=== PATIENT | female | born 1970 | race Caucasian/White ===

== ENCOUNTER → 2017-03-18 | Outpatient (CLI) | payer BC ==
[~2017-03-18] MED LIST: PARO1TAB27 PO; SYN25 PO
[2017-03-18 13:03] LABS: THYROID STIMULATING HORMONE 5.53 uIu/ml (0.300-4.500)
[2017-03-18 13:15] LABS: ESTIMATED AVERAGE GLUCOSE 111 mg/dl; HA1C FLAG Normal (Normal)
== END | disposition home or self-care (01) ==
LOC: C.LABPVFM 09:44
PROVIDERS: ATTEND Family Medicine
DX: E03.9 Hypothyroidism, unspecified (principal); R73.09 Other abnormal glucose

== ENCOUNTER → 2017-05-13 | Outpatient (CLI) | payer BC ==
--- NOTE | 2017-05-13 14:08 | DIAGNOSTIC IMAGING REPORT ---
LEFT LOWER EXTREMITY VENOUS DOPPLER HISTORY: LEFT LEG PAIN, LUMP R/O DVT COMPARISON STUDY: None. FINDINGS: There is normal compressibility, flow, and augmentation within the left lower extremity deep venous system. IMPRESSION: No DVT within the left lower extremity. Electronically signed by: Mitchel Samayoa M.D. 05/13/2017 2:06 PM Dictated Date/Time: 05/13/2017 2:06 PM
== END | disposition home or self-care (01) ==
LOC: C.ULTRBC 13:19
PROVIDERS: ATTEND Orthopaedic Surgery Sports Medicine
DX: M79.662 Pain in left lower leg (principal)

== ENCOUNTER → 2017-08-13 | Outpatient (CLI) | payer BC ==
[~2017-08-13] MED LIST changes: +CHOL20007 PO; +LEVO137T3 PO
== END | disposition home or self-care (01) ==
LOC: C.LABPVFM 13:11
PROVIDERS: ATTEND Family Medicine
DX: E66.9 Obesity, unspecified (principal)

== ENCOUNTER 2017-08-17 01:50 | Emergency (ER) | payer OTHER, BC ==
[~2017-08-17] VITALS: Ht 165.1 cm; Wt 115.9 kg
[~2017-08-17 01:50] MED LIST changes: -CHOL20007 PO; -LEVO137T3 PO
[2017-08-17 01:55] VITALS: TEMP 36.5; Ht 165.1 cm; Wt 115.9 kg
[2017-08-17] MEDS ORDERED: IBUPROFEN 600 MG TAB PO STA (02:11)
[2017-08-17] MEDS ORDERED: ACETAMINOPHEN 500 MG TAB PO STA (02:11)
[2017-08-17] MEDS ORDERED: LEVO137T3 PO (02:22)
[2017-08-17] MEDS ORDERED: CHOL20007 PO (02:23)
[2017-08-17 04:37] VITALS: BP 159/81; PULSE 89; O2SAT 97
--- NOTE | 2017-08-17 09:53 | DIAGNOSTIC IMAGING REPORT ---
CHEST 2 VIEWS ROUTINE CLINICAL HISTORY: Fall. Right side chest injury. COMPARISON STUDY: Chest radiograph August 07, 2015. FINDINGS: Cholecystectomy clips are noted. No pneumothorax or pleural effusion is noted. No airspace opacities are identified. No right rib fractures are identified although sensitivity is diminished given this technique. Cardiac size is at the upper limits of normal. There is no evidence for pulmonary edema. IMPRESSION: 1. No acute cardiopulmonary findings. No pneumothorax. 2. No right rib fractures identified although sensitivity significantly diminished given this technique. Electronically signed by: Sim Duffy M.D. 08/17/2017 9:52 AM Dictated Date/Time: 08/17/2017 9:50 AM
--- NOTE | 2017-08-17 09:59 | DIAGNOSTIC IMAGING REPORT ---
R ANKLE MIN 3 VIEWS ROUTINE CLINICAL HISTORY: Fall. Right ankle injury. COMPARISON: None FINDINGS: Alignment of the right ankle is anatomic. There is no acute fracture. There is moderate posterior and plantar calcaneal spurring. There is moderate ankle soft tissue swelling. IMPRESSION: No acute fracture or dislocation of the right ankle. Electronically signed by: Sim Duffy M.D. 08/17/2017 9:58 AM Dictated Date/Time: 08/17/2017 9:52 AM
--- NOTE | 2017-08-18 01:59 | EMERGENCY ROOM VISIT NOTE ---
History First contact with patient: 01:59 Chief Complaint: FALL Stated Complaint: FELL AT WORK-HURT RIGHT ANKLE AND BACK History of Present Illness The patient is a 47 year old female who presents to the Emergency Room with complaints of right ankle pain after slipping on ice at work tonight. 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 She states that she turned the ankle inward and also landed onto her right side chest. She did not strike her head or lose consciousness. She was able to stand and walk after the injury. The patient already follows with [facility] for a left Achilles tendon rupture and repair. She is not having any discomfort in this area. No shortness of breath. The fall was mechanical in nature. She is not taken nothing [id number] for her discomfort which she currently rates a 5/10. Review of Systems More than 10 systems were reviewed and otherwise negative with the exception of history of present illness. Past Medical/Surgical History No pertinent chronic medical disease Family History No pertinent family history Social History Smoking Status: Never Smoker Occupation Status: employed Current/Historical Medications Scheduled Cholecalciferol (Vitamin D3), 2,000 MG PO DAILY Levothyroxine Sodium (Levothyroxine Sodium), 1 TAB PO DAILY Paroxetine (Paxil), 20 MG PO DAILY Physical Exam Vital Signs Date Time Temp Pulse Resp B/P (MAP) Pulse Ox O2 Delivery O2 Flow Rate FiO2 08/17/17 04:37 89 16 159/81 97 Room Air 08/17/17 03:39 68 18 169/95 98 Room Air 08/17/17 01:55 36.5 73 20 157/89 98 Room Air Physical Exam VITALS: Vitals are noted on the nurse's note and reviewed by myself. Vital signs stable. GENERAL: Well-developed, well-nourished, white female, who is in no acute distress and resting comfortably. Patient is cooperative with the examination. NECK: Supple without nuchal rigidity. No lymphadenopathy. No thyromegaly. Cervical spine is nontender. HEART: Regular rate and rhythm without murmurs gallops or rubs. LUNGS: Clear to auscultation bilaterally without wheezes, rales or rhonchi. No retractions or accessory muscle use. CHEST WALL: No obvious reducible tenderness throughout the right side chest wall. No significant abrasion MUSCULOSKELETAL: There is mild edema appreciated over the lateral aspect of the right ankle that is tender. No lacerations or abrasions. No gross deformity. Neurovascular status is intact distally. No tenderness of the MTP joints or heel. No right knee or hip tenderness. NEURO: Patient was alert and oriented to person place and time. CN II through XII grossly intact. Medical Decision & Procedures ER Provider Diagnostic Interpretation: R ANKLE MIN 3 VIEWS ROUTINE CLINICAL HISTORY: Fall. Right ankle injury. COMPARISON: None FINDINGS: Alignment of the right ankle is anatomic. There is no acute fracture. There is moderate posterior and plantar calcaneal spurring. There is moderate ankle soft tissue swelling. IMPRESSION: No acute fracture or dislocation of the right ankle. CHEST 2 VIEWS ROUTINE CLINICAL HISTORY: Fall. Right side chest injury. COMPARISON STUDY: Chest radiograph August 07, 2015. FINDINGS: Cholecystectomy clips are noted. No pneumothorax or pleural effusion is noted. No airspace opacities are identified. No right rib fractures are identified although sensitivity is diminished given this technique. Cardiac size is at the upper limits of normal. There is no evidence for pulmonary edema. IMPRESSION: 1. No acute cardiopulmonary findings. No pneumothorax. 2. No right rib fractures identified although sensitivity significantly diminished given this technique. Medications Administered Medications (Trade) Dose Ordered Sig/Guilherme Route Start Time Stop Time Status Last Admin Dose Admin Acetaminophen (Tylenol Tab) 1,000 mg NOW STAT PO 08/17/17 02:11 08/17/17 02:12 DC 08/17/17 02:30 1,000 MG Ibuprofen (Motrin Tab) 600 mg NOW STAT PO 08/17/17 02:11 08/17/17 02:12 DC 08/17/17 02:29 600 MG ED Course Physical exam and history were performed. Nursing notes, EMR, and Medication List were personally reviewed. Patient appears to have slipped at work causing injury to her right ankle. She is also complaining of vague right-sided chest discomfort, however no distinct point tenderness appreciated on examination. The patient was given Advil and Tylenol here in the department. X-rays were performed and reviewed by myself and radiology showing no acute fractures or dislocations. Overall the patient appears well for discharge home. She will be given a walker and gel ankle splint. She is to follow with Workmen's Compensation for further management. She was otherwise invited back to the ER with any new, worsening, or concerning symptoms. The chart was completed utilizing [employer] Speech Voice Recognition Software. Grammatical errors, random word insertions, pronoun errors, and incomplete sentences are an occasional consequence of this system due to software limitations, ambient noise, and hardware issues. Any formal questions or concerns about the content, text, or information contained within the body of this dictation should be directly addressed to the provider for clarification. . Medical Decision Differential diagnosis includes, but is not limited to: Sprain, strain, fracture , dislocation, subluxation, contusion, and others Impression Primary Impression: Fall Additional Impressions: Right ankle injury Chest wall injury Departure Information Dispostion Home / Self-Care Condition GOOD Referrals Manish Denney D.O. Forms HOME CARE DOCUMENTATION FORM, Work Instructions, Additional Instructions: Patient was seen and evaluated today in the emergency department fo medical care. Return to work on 08/20/2017 or at the instruction o Workmen's Compensation. Please excuse. IMPORTANT VISIT INFORMATION Patient Instructions My [facility] Additional Instructions You were seen and evaluated today on an emergency basis only. This is not a substitute for, or an effort to provide, complete comprehensive medical care. It is not possible to recognize and treat all injuries or illnesses in a single emergency department visit. For this reason it is recommended that you followup with Workmen's Compensation for ongoing care and evaluation. For baseline pain relief you may alternate ibuprofen and acetaminophen every 4 hours for pain control. Take 600 mg ibuprofen (Advil) and then 4 hours later take 1000 mg acetaminophen (Tylenol). Do not take more than 3000 mg acetaminophen in a single day. Wrap your ankle for comfort. Use your crutches to help with walking. You are welcome to return to the emergency department anytime with new, worsening, or concerning symptoms. Work Instructions Additional Work Instructions: Patient was seen and evaluated today in the emergency department for medical care. Return to work on 08/20/2017 or at the instruction of Workmen's Compensation. Please excuse. Problem Qualifiers
== END 2017-08-17 04:45 | disposition home or self-care (01) ==
LOC: C.EDB 01:51
DX: S99.911A Unspecified injury of right ankle, initial encounter (principal); S20.90XA Unspecified superficial injury of unspecified parts of thorax, initial encounter; W00.9XXA Unspecified fall due to ice and snow, initial encounter; Z98.890 Other specified postprocedural states

== ENCOUNTER → 2017-11-20 | Outpatient (CLI) | payer BC ==
[~2017-11-20] MED LIST changes: +CHOL20007 PO; +LEVO137T3 PO; -SYN25 PO
--- NOTE | 2017-11-21 15:17 | MAMMOGRAPHY REPORT ---
BILATERAL DIGITAL SCREENING MAMMOGRAM TOMOSYNTHESIS WITH CAD: 11/20/2017 CLINICAL HISTORY: Routine screening. The patient reported to the technologist that she has itching o f the right breast. TECHNIQUE: Breast tomosynthesis in addition to standard 2D mammography was performed. Current study was also evaluated with a Computer Aided Detection (CAD) system. COMPARISON: Comparison is made to exams dated: 09/08/2015 mammogram, 04/06/2014 ultrasound, 04/06/2014 mammogram, 02/19/2013 ultrasound, 02/11/2013 mammogram, and 10/14/2011 mammogram - [facility]. BREAST COMPOSITION: There are scattered areas of fibroglandular density in both breasts. FINDINGS: No suspicious masses, calcifications, or areas of architectural distortion are noted in ei ther breast. There has been no significant interval change compared to prior exams. Lobulated benign -appearing mass measuring approximately 2.9 cm in the left upper outer anterior breast is again noted and was shown to represent a benign cyst on prior ultrasound exams. IMPRESSION: ACR BI-RADS CATEGORY 2: BENIGN There is no mammographic evidence of malignancy. A 1 year screening mammogram is recommended. Also r ecommend clinical follow-up for itching of the right breast. The patient will receive written notifi cation of the results. Approximately 10% of breast cancers are not detected with mammography. A negative mammographic report should not delay biopsy if a clinically suggestive mass is present. Leonor Curtis M.D. /:11/20/2017 16:30:47 Awnings Mechanic: Patrica DELGADO(Ailin)(Ren), [facility] letter sent: Normal 1/2 BI-RADS Code: ACR BI-RADS Category 2: Benign
== END | disposition home or self-care (01) ==
LOC: C.MAMM 14:20
PROVIDERS: ATTEND Family Medicine
DX: Z12.31 Encounter for screening mammogram for malignant neoplasm of breast (principal); L29.9 Pruritus, unspecified

== ENCOUNTER 2018-02-09 19:51 | Emergency (ER) | payer BC ==
[~2018-02-09] VITALS: Ht 165.1 cm; Wt 117.4 kg
[2018-02-09 19:57] VITALS: TEMP 36.6; Ht 165.1 cm; Wt 117.4 kg
[2018-02-09] MEDS ORDERED: ONDANSETRON 4MG OD TAB PO STA (20:25)
[2018-02-09] MEDS ORDERED: FAMOTIDINE 20 MG TAB PO ONE (20:30)
--- NOTE | 2018-02-09 20:40 | EMERGENCY ROOM VISIT NOTE ---
History Report prepared by [employer]: Lilli Ware Under the Supervision of: Dr. Suresh Delatorre M.D. First contact with patient: 20:18 Chief Complaint: ALLERGIC REACTION Stated Complaint: RASH,WELTS,HIVES History of Present Illness The patient is a 47 year old white female with a past medical history of anxiety and cholecystectomy who presents to the ED with a cc of constant, itchy rash beginning around 7 hours ago. She states she noticed a bug bite on her wrist this morning, and put topical anti-itch cream on the area. The patient reports she began noticing a rash on her legs while at work, which has since spread to the rest of her body. She notes she is nauseated. The patient states she returned last night from a trip to [place], [place]. She reports she was around horses and received multiple bug bites while on the trip. The patient denies any headaches, vomiting, or SOB. She denies any other recent travel, changes in shampoo etc, diet changes, or contact with plants. The patient notes no one else from her trip is sick. She reports no known allergies besides penicillin. Source of History: patient Onset: 7 hours ago Position: other (skin) Quality: other (itchy rash) Timing: constant Associated Symptoms: + nausea, No headache, No SOB, No vomiting Review of Systems See HPI for pertinent positives and negatives. A total of ten systems were reviewed and were otherwise negative. Family History No pertinent family history stated. Social History Smoking Status: Never Smoker Smokeless Tobacco Use: No Alcohol Use: none Drug Use: none Occupation Status: employed Current/Historical Medications Scheduled Levothyroxine Sodium (Levothyroxine Sodium), 137 MCG PO DAILY Paroxetine (Paroxetine HCl), 15 MG PO DAILY Prednisone (Prednisone), 50 MG PO DAILY Allergies Coded Allergies: Penicillins (Verified Allergy, Intermediate, hives, 08/17/17) Uncoded Allergies: NKA (Allergy, Unknown, 04/10/03) Physical Exam Vital Signs Date Time Temp Pulse Resp B/P (MAP) Pulse Ox O2 Delivery O2 Flow Rate FiO2 02/09/18 21:36 83 18 181/112 97 02/09/18 20:49 Room Air 02/09/18 20:21 82 02/09/18 19:57 36.6 104 18 158/96 95 Room Air Physical Exam GENERAL: Awake, alert, well-appearing, NAD, obese. HENT: Normocephalic, atraumatic. Non-stridulous. EYES: Normal conjunctiva. Sclera non-icteric. PERRL. No anisocoria. NECK: Supple. No nuchal rigidity. FROM. RESPIRATORY: CTAB, no rhonchi, wheezing, crackles CARDIAC: RRR, no MRG ABDOMEN: Soft, NTND, BS+ MSK: No chest wall TTP, no LE edema NEURO: GCS 15, CN 2-12 intact, moves all 4s on command SKIN: Confluent blanching, macular erythema over lower back and band-like across the abdomen and small area behind R ear. Medical Decision & Procedures Medications Administered Medications (Trade) Dose Ordered Sig/Guilherme Route Start Time Stop Time Status Last Admin Dose Admin Ondansetron HCl (Zofran Odt) 4 mg NOW STAT PO 02/09/18 20:25 02/09/18 20:28 DC 02/09/18 20:35 4 MG Prednisone (PredniSONE TAB) 50 mg NOW STAT PO 02/09/18 20:25 02/09/18 20:28 DC 02/09/18 20:35 50 MG Diphenhydramine HCl (Benadryl Cap) 50 mg NOW ONCE PO 02/09/18 20:30 02/09/18 20:31 DC 02/09/18 20:35 50 MG Famotidine (Pepcid Tab) 20 mg NOW ONCE PO 02/09/18 20:30 02/09/18 20:31 DC 02/09/18 20:35 20 MG ED Course 2020: The patient was evaluated in room C3. A complete history and physical exam was performed. 2117: I reevaluated the patient. Discussed results and discharge instructions: she verbalized understanding and agreement. The patient is ready for discharge. Medical Decision The patient is a 47 year old white female with a past medical history of anxiety and cholecystectomy who presents to the ED with a cc of constant, itchy rash beginning around 7 hours ago. Etiologies such as contact dermatitis, viral exanthem, urticaria, allergic reaction, Cardenas-Ugo syndrome, toxic epidermal necrolysis, erythema multiforme, cellulitis, scabies, HSV, varicella, zoster, eczema, staph scalded skin syndrome, fungal infection, as well as others were entertained. Patient was seen and evaluated the bedside. The patient was complaining of a rash and itchiness. On exam the patient is non-stridulous and does not have any evidence of wheezing. Posterior pharynx is clear. Patient does have mild rash to the abdomen back and right side of the neck. It does not involve the oral or eye mucosa. Patient was given steroids, Benadryl, and Pepcid. Upon reassessment the patient was feeling improved and the rash was receding. I believe the patient is suitable for outpatient follow-up and treatment at this time. Patient was given strict follow-up, discharge, and return precautions. All questions were answered. Patient was deemed suitable for outpatient follow-up at this time. Patient agreed with the plan of care and was safely discharged home. Medication Reconcilliation Current Medication List: was personally reviewed by me Blood Pressure Screening Patient's blood pressure: Elevated blood pressure Blood pressure disposition: Referred to PCP Impression Primary Impression: Allergic reaction Additional Impression: Urticaria Scribe Attestation The scribe's documentation has been prepared under my direction and personally reviewed by me in its entirety. I confirm that the note above accurately reflects all work, treatment, procedures, and medical decision making performed by me. Departure Information Dispostion Home / Self-Care Prescriptions Prednisone (PREDNISONE) 50 Mg Tab 50 MG PO DAILY for 4 Days, #4 TAB Prov: Suresh Delatorre M.D. 02/09/18 Referrals No Doctor, Assigned (PCP) Forms HOME CARE DOCUMENTATION FORM, IMPORTANT VISIT INFORMATION Patient Instructions ED Allergic Reaction General Other, ED Urticaria, My [facility] Additional Instructions Please return to the emergency department if you have worsening or recurrent symptoms not amenable to at-home treatment. Please call for a follow-up appointment with her primary care physician. Please take your medications as prescribed. If you have other concerns and/or complaints please feel free to also call your primary care physician's office or return the ED for further evaluation, management, and treatment. You were found to have an elevated blood pressure today (>120 sytolic or >90 diastolic). Per medicare guidelines, you need to follow up with this blood pressure screening with your Primary Care Physician (PCP). For a new PCP call [phone]. You received narcotic or benzodiazepene medication while in the emergency room today. This is an addictive medication that may cause drowziness as well as constipation. Do not drive, operate heavy machinery, or drink alcohol under the influence of this medication. You may take 400 mg Ibuprofen every 6 hours as needed for pain/fever with food unless told by your physician not to take NSAIDs. You may take tylenol 650 mg every 6 hours as needed for pain/fever unless told by your physician to not take it or have liver problems. You may take motrin and tylenol separately or at the same time. Take your medications as prescribed. You may consider Benadryl or Cortaid cream. Please do not use the cortisone based cream for more than 2 days at a time as this may cause some skin thinning. You may also consider calamine lotion. You may consider Benadryl. You may also consider oatmeal baths. Please also consider only bathing once daily and making sure that your water is not very hot as washing too frequently and/or using very hot water may also cause some skin dryness and worsening itchiness. Please consider using creams as opposed to lotions as the lotions typically have alcohols which may also further worsen skin dryness and itchiness. Please take your steroids preferably in the morning and with food as they may cause some upset stomach and cause you to be very awake and alert. You have been examined and treated today on an emergency basis only. This is not a substitute for, or an effort to provide, complete comprehensive medical care. It is impossible to recognize and treat all injuries or illnesses in a single emergency department visit. It is therefore important that you follow up closely with [facility], your PCP, and/or your specialist(s). Call as soon as possible for an appointment. Thank you for your time and consideration. I look forward to speaking with you again soon. Please don't hesitate to call us if you have any questions. Problem Qualifiers Primary Impression: Allergic reaction Encounter type: initial encounter Qualified Codes: T78.40XA - Allergy, unspecified, initial encounter
[2018-02-09] MEDS ORDERED: PRED50TA PO (21:01)
[2018-02-09 21:36] VITALS: BP 181/112; PULSE 83; O2SAT 97
[2018-02-09] MEDS ORDERED: PXL/10 PO (21:45)
== END 2018-02-09 21:37 | disposition home or self-care (01) ==
LOC: C.EDB 19:51 → C.EDC 21:37
DX: T78.40XA Allergy, unspecified, initial encounter (principal); X58.XXXA Exposure to other specified factors, initial encounter; Z79.899 Other long term (current) drug therapy; Z88.0 Allergy status to penicillin

== ENCOUNTER 2018-02-13 09:24 | Emergency (ER) | payer BC ==
[~2018-02-13] VITALS: Ht 165.1 cm; Wt 115.7 kg
[~2018-02-13 09:24] MED LIST changes: -CHOL20007 PO; -PARO1TAB27 PO; +PRED50TA PO; +PXL/10 PO
[2018-02-13 09:28] VITALS: TEMP 36.7; Ht 165.1 cm; Wt 115.7 kg
[2018-02-13] MEDS ORDERED: ONDANSETRON INJ 2 MG/ML 2 ML VIAL IV STA (09:48)
[2018-02-13] MEDS ORDERED: METHYLPREDNISOLONE 125 MG VIAL IV STA (09:48)
[2018-02-13] MEDS ORDERED: SODIUM CHLORIDE 0.9% 1000ML 1,000 ML IV STA (09:48)
[2018-02-13] MEDS ORDERED: DiphenhydrAMINE HCL 50 MG/ML VIAL IV STA (09:48)
[2018-02-13] MEDS ORDERED: RANITIDINE HCL 150 MG TAB PO STA (09:48)
[2018-02-13 10:17] LABS: BASO % 0.2 %; BASO ABS # 0.01 K/uL (0-0.2); EOS % 0.7 %; EOS ABS # 0.04 K/uL (0-0.5); HEMATOCRIT 43.3 % (37-47); HEMOGLOBIN 14.9 g/dL (12.0-16.0); IG# 0.02 K/uL (0.00-0.02); LYMPH % 18.6 %; LYMPH ABS # 1.13 K/uL (1.2-3.4); MEAN CELL VOLUME 87.5 fL (80-100); MEAN CORPUSCULAR HEMOGLOBIN 30.1 pg (25-34); MEAN CORPUSCULAR HGB CONC 34.4 g/dl (32-36); MEAN PLATELET VOLUME 9.2 fL (7.4-10.4); MONO % 6.1 %; MONO ABS # 0.37 K/uL (0.11-0.59); NEUT % 74.1 %; NEUT ABS # 4.51 K/uL (1.4-6.5); PLATELET COUNT 236 K/uL (130-400); RED CELL DISTRIBUTION WIDTH SD 41.4 fL (36.4-46.3); WHITE BLOOD COUNT 6.08 K/uL (4.8-10.8)
--- NOTE | 2018-02-13 10:28 | EMERGENCY ROOM VISIT NOTE ---
History Report prepared by Maggie: Navneet Griffin Under the Supervision of: Dr. Rajinder Loredo M.D. First contact with patient: 09:40 Chief Complaint: RASH Stated Complaint: RASH,VOMITING,DIARRHEA History of Present Illness The patient is a 47 year old female who presents to the Emergency Room with complaints of a persistent rash across her abdomen that she first noticed on Friday, 4 days ago. The patient states that she presented to the emergency department 4 days ago for the rash and was prescribed a steroid. She did not fill or take the steroid and she has not had any improvement of her symptoms. She now complains of nausea, vomiting, or diarrhea. She denies any abdominal pain. Source of History: patient Onset: 4 days ago Position: abdomen Quality: other (Rash) Timing: other (Persistent) Associated Symptoms: + nausea, + vomiting, + diarrhea, No abdominal pain Review of Systems See HPI for pertinent positives & negatives. A total of 10 systems reviewed and were otherwise negative. Past Medical & Surgical Hx of Hypothyroid. Social History Smoking Status: Never Smoker Alcohol Use: none Drug Use: none Occupation Status: employed Current/Historical Medications Scheduled Levothyroxine Sodium (Levothyroxine Sodium), 137 MCG PO DAILY Paroxetine (Paroxetine HCl), 15 MG PO DAILY Prednisone (Prednisone Tab), 0 PO DAILY Allergies Coded Allergies: Penicillins (Verified Allergy, Intermediate, hives, 02/13/18) Physical Exam Vital Signs Date Time Temp Pulse Resp B/P (MAP) Pulse Ox O2 Delivery O2 Flow Rate FiO2 02/13/18 11:39 71 18 148/89 98 Room Air 02/13/18 10:38 82 18 138/97 100 Room Air 02/13/18 10:38 75 02/13/18 09:28 36.7 97 18 154/92 100 Room Air Physical Exam GENERAL: Awake, alert, well-appearing, in no acute distress HENT: Normocephalic, atraumatic. Oropharynx unremarkable. EYES: Normal conjunctiva. Sclera non-icteric. NECK: Supple. No nuchal rigidity. FROM. No JVD. RESPIRATORY: Clear to auscultation. There is no wheezing or stridor present. CARDIAC: Regular rate, normal rhythm. Extremities warm and well perfused. Pulses equal. ABDOMEN: Soft, non-distended. No tenderness to palpation. No rebound or guarding. No masses. RECTAL: Deferred. MUSCULOSKELETAL: Chest examination reveals no tenderness. The back is symmetrical on inspection without obvious abnormality. There is no CVA tenderness to palpation. No joint edema. LOWER EXTREMITIES: Calves are equal size bilaterally and non-tender. No edema. No discoloration. NEURO: Normal sensorium. No sensory or motor deficits noted. SKIN: Urticarial rash present on flank, chest. Medical Decision & Procedures Laboratory Results 02/13/18 10:06 Red Blood Count 4.95, Mean Corpuscular Volume 87.5, Mean Corpuscular Hemoglobin 30.1, Mean Corpuscular Hemoglobin Concent 34.4, Mean Platelet Volume 9.2, Neutrophils (%) (Auto) 74.1, Lymphocytes (%) (Auto) 18.6, Monocytes (%) (Auto) 6.1, Eosinophils (%) (Auto) 0.7, Basophils (%) (Auto) 0.2, Neutrophils # (Auto) 4.51, Lymphocytes # (Auto) 1.13, Monocytes # (Auto) 0.37, Eosinophils # (Auto) 0.04, Basophils # (Auto) 0.01 02/13/18 10:06 Test 02/13/18 10:06 02/13/18 10:28 White Blood Count 6.08 K/uL (4.8-10.8) Red Blood Count 4.95 M/uL (4.2-5.4) Hemoglobin 14.9 g/dL (12.0-16.0) Hematocrit 43.3 % (37-47) Mean Corpuscular Volume 87.5 fL (80-100) Mean Corpuscular Hemoglobin 30.1 pg (25-34) Mean Corpuscular Hemoglobin Concent 34.4 g/dl (32-36) Platelet Count 236 K/uL (130-400) Mean Platelet Volume 9.2 fL (7.4-10.4) Neutrophils (%) (Auto) 74.1 % Lymphocytes (%) (Auto) 18.6 % Monocytes (%) (Auto) 6.1 % Eosinophils (%) (Auto) 0.7 % Basophils (%) (Auto) 0.2 % Neutrophils # (Auto) 4.51 K/uL (1.4-6.5) Lymphocytes # (Auto) 1.13 K/uL (1.2-3.4) Monocytes # (Auto) 0.37 K/uL (0.11-0.59) Eosinophils # (Auto) 0.04 K/uL (0-0.5) Basophils # (Auto) 0.01 K/uL (0-0.2) RDW Standard Deviation 41.4 fL (36.4-46.3) RDW Coefficient of Variation 13.0 % (11.5-14.5) Immature Granulocyte % (Auto) 0.3 % Immature Granulocyte # (Auto) 0.02 K/uL (0.00-0.02) Anion Gap 9.0 mmol/L (3-11) Est Creatinine Clear Calc Drug Dose 91.0 ml/min Estimated GFR () 81.5 Estimated GFR (Non- 70.3 BUN/Creatinine Ratio 19.6 (10-20) Calcium Level 8.6 mg/dl (8.5-10.1) Total Bilirubin 0.6 mg/dl (0.2-1) Direct Bilirubin mg/dl (0-0.2) Aspartate Amino Transf (AST/SGOT) 22 U/L (15-37) Alanine Aminotransferase (ALT/SGPT) 39 U/L (12-78) Alkaline Phosphatase 84 U/L (45-117) Total Protein 7.3 gm/dl (6.4-8.2) Albumin 3.5 gm/dl (3.4-5.0) Lipase 110 U/L (73-393) Chemistry Specimen Hemolysis Urine Color YELLOW Urine Appearance CLEAR (CLEAR) Urine pH 7.0 (4.5-7.5) Urine Specific [place] 1.020 (1.000-1.030) Urine Protein NEG (NEG) Urine Glucose (UA) NEG (NEG) Urine Ketones NEG (NEG) Urine Occult Blood NEG (NEG) Urine Nitrite NEG (NEG) Urine Bilirubin NEG (NEG) Urine Urobilinogen NEG (NEG) Urine Leukocyte Esterase TRACE (NEG) Labs reviewed by ED physician. Medications Administered Medications (Trade) Dose Ordered Sig/Guilherme Route Start Time Stop Time Status Last Admin Dose Admin Sodium Chloride 1,000 ml @ 999 mls/hr Q1H1M STAT IV 02/13/18 09:48 02/13/18 10:48 DC 02/13/18 10:26 999 MLS/HR Methylprednisolone Sodium Succinate (Solu-Medrol IV) 125 mg NOW STAT IV 02/13/18 09:48 02/13/18 09:51 DC 02/13/18 10:27 125 MG Ondansetron HCl (Zofran Inj) 4 mg NOW STAT IV 02/13/18 09:48 02/13/18 09:51 DC 02/13/18 10:27 4 MG Diphenhydramine HCl (Benadryl Inj) 50 mg NOW STAT IV 02/13/18 09:48 02/13/18 09:51 DC 02/13/18 10:27 50 MG Ranitidine HCl (zANTac TAB) 150 mg NOW STAT PO 02/13/18 09:48 02/13/18 09:51 DC 02/13/18 10:27 150 MG ED Course 0943: Past medical records reviewed. The patient was evaluated in room A11B. A complete history and physical examination was performed. 1143: Upon reexamination the patient is resting in bed. I discussed results and treatment plan with the patient. [] verbalizes agreement and understanding. The patient is ready for discharge. Medical Decision Prior records/ancillary studies reviewed. Triage Nursing notes reviewed. Differential diagnosis: Etiologies such as contact dermatitis, viral exanthem, urticaria, allergic reaction, Cardenas-Ugo syndrome, toxic epidermal necrolysis, erythema multiforme, cellulitis, scabies, HSV, varicella, zoster, eczema, staph scalded skin syndrome, fungal infection, gastroenteritis, food borne illness, infections , appendicitis, diverticulitis, inflammatory bowel disease, obstruction, GI bleed, biliary pathology, as well as others were entertained. 7-year-old female who presents emergency department complaining of allergic reaction. The patient was given Solu-Medrol Zantac and Benadryl. The patient had been prescribed prednisone however did not fill it. She has normal laboratory work including normal CBC normal renal profile normal liver profile. The patient will be placed on prednisone. I stressed the need to follow-up with primary care physician so the patient get in with an survey research center director. Patient was in agreement with the treatment plan. Medication Reconcilliation Current Medication List: was personally reviewed by me Blood Pressure Screening Patient's blood pressure: Elevated blood pressure Blood pressure disposition: Elevated BP felt to be situational Impression Primary Impression: Allergic reaction Scribe Attestation The scribe's documentation has been prepared under my direction and personally reviewed by me in its entirety. I confirm that the note above accurately reflects all work, treatment, procedures, and medical decision making performed by me. Departure Information Dispostion Home / Self-Care Prescriptions Prednisone (Prednisone Tab) 20 Mg Tab 0 PO DAILY, #7 TAB 2 TABS DAILY FOR 2 DAYS, THEN 1 TAB DAILY FOR 2 DAYS, THEN 1/2 TAB DAILY FOR 2 DAYS. Prov: Rajinder Loredo MD 02/13/18 Referrals No Doctor, Assigned (PCP) Forms HOME CARE DOCUMENTATION FORM, IMPORTANT VISIT INFORMATION, WORK / SCHOOL INSTRUCTIONS Patient Instructions My [facility] Additional Instructions Take 50 mg Benadryl every 6 hours You have been examined and treated today on an emergency basis only. This is not a substitute for, or an effort to provide, complete comprehensive medical care. It is impossible to recognize and treat all injuries or illnesses in a single emergency department visit. It is therefore important that you follow up closely with Dr Christian. Call as soon as possible for an appointment. Thank you for your time and consideration. I look forward to speaking with you again soon. Please don't hesitate to call us if you have any questions. Problem Qualifiers Primary Impression: Allergic reaction Encounter type: initial encounter Qualified Codes: T78.40XA - Allergy, unspecified, initial encounter
[2018-02-13 10:42] LABS: ALBUMIN 3.5 gm/dl (3.4-5.0); CALCIUM 8.6 mg/dl (8.5-10.1); CREATININE 0.95 mg/dl (0.60-1.20); POTASSIUM 4.1 mmol/L (3.5-5.1); TOTAL PROTEIN 7.3 gm/dl (6.4-8.2)
[2018-02-13] MEDS ORDERED: PRED20TA2 PO (11:37)
[2018-02-13 11:39] VITALS: BP 148/89; PULSE 71; O2SAT 98
== END 2018-02-13 11:49 | disposition home or self-care (01) ==
LOC: C.ED 09:26 → C.EDA 11:49
DX: T78.40XA Allergy, unspecified, initial encounter (principal); X58.XXXA Exposure to other specified factors, initial encounter; E03.9 Hypothyroidism, unspecified; Z79.899 Other long term (current) drug therapy; Z88.0 Allergy status to penicillin

== ENCOUNTER → 2018-02-16 | Outpatient (CLI) | payer BC ==
[~2018-02-16] MED LIST changes: +PRED20TA2 PO; -PRED50TA PO
== END | disposition home or self-care (01) ==
LOC: C.LABPVFM 11:18
PROVIDERS: ATTEND Nurse Practitioner
DX: E03.9 Hypothyroidism, unspecified (principal); L50.9 Urticaria, unspecified